=== PATIENT | male | born 1995 | race Two or more races ===

== ENCOUNTER 2018-08-31 16:31 | Emergency (ER) | payer OTHER ==
[~2018-08-31] VITALS: Ht 170.2 cm; Wt 102.3 kg
[2018-08-31 18:25] VITALS: BP 136/80
== END 2018-08-31 18:27 | disposition home or self-care (01) ==
LOC: ED 17:16
DX: S52.201A Unspecified fracture of shaft of right ulna, initial encounter for closed fracture (principal); W01.0XXA Fall on same level from slipping, tripping and stumbling without subsequent striking against object, initial encounter; Y93.89 Activity, other specified; Y92.009 Unspecified place in unspecified non-institutional (private) residence as the place of occurrence of the external cause; Y99.8 Other external cause status
CPT/HCPCS: 29125; 99283